=== PATIENT | female | born 1995 | race Caucasian/White ===

== ENCOUNTER 2020-01-24 22:18 | Emergency (ER) | payer SELFPAY ==
[2020-01-24] MEDS ORDERED: Sodium Chloride 0.9% 10 ML Syringe FLUSH PRN (22:59)
[2020-01-24] MEDS ORDERED: Sodium Chloride 0.9% 2.5 ML Syringe FLUSH PRN (22:59)
[2020-01-25 00:10] LABS: BLOOD UREA NITROGEN,BUN 8 mg/dL (7.0-18.0); CARBON DIOXIDE,CO2 23.4 mmol/L (21.0-32.0); CHLORIDE,CL 101 mmol/L (98-107); GLUCOSE RANDOM 96 mg/dL (74-106); POTASSIUM,K 3.5 mmol/L (3.5-5.1); SODIUM,NA 137 mmol/L (136-145)
--- NOTE | 2020-01-25 00:26 | US ---
INDICATION: Heavy bleeding and cramping TECHNIQUE: Ultrasound pelvis transvaginal for better assessment or to better visualize the endometrium. Real-time sonographic images with spectral and color Doppler imaging of the ovaries were obtained. COMPARISON: None FINDINGS: Uterus: 10.0 x 5.7 x 6.7 cm. Normal echotexture of the myometrium. No masses. Endometrium: Thickened with vascularity with a hypoechoic avascular area near the fundus. Right ovary measures 1.9 x 2.4 x 2.8 cm and left ovary measures 1.3 x 3.5 x 3.0 cm. No ovarian or adnexal masses. Normal blood flow is demonstrated in both ovaries. Cul-de-sac: No significant free fluid. IMPRESSION: Thickened endometrium with some focal fluid near the fundus although without well-defined gestational sac. This is considered a of uncertain location. Differential diagnosis includes normal early and miscarriage. Ectopic not excluded although none is seen on this exam. Suggest correlation with serial quantitative HCG and follow-up ultrasound in 7-10 days. Dictated by Luis Miguel Walters MD @ Jan 25 2020 12:19AM Signed by Dr. Luis Miguel Walters @ Jan 25 2020 12:24AM
[2020-01-25] MEDS ORDERED: Sodium Chloride 0.9% 1,000 ML IV ONE ×2 (01:11→01:46)
--- NOTE | 2020-01-25 01:41 | EDM.PDOC ---
ED HPI GENERAL MEDICAL PROBLEM - General Chief Complaint: PRODUCTION ESTIMATOR Problem Stated Complaint: POSSIBLE MISCARRIAGE Time Seen by Provider: 01/24/20 22:58 - History of Present Illness INITIAL COMMENTS - FREE TEXT/NARRATIVE: History of present illness: 24-year-old female presenting with increasing vaginal bleeding since early this morning. First she developed some cramping and then started to have bright red blood. Last menstrual period November 10, 2019. She did take a test which was positive. She has had a prior miscarriage in the past as well as a termination. She reports she is O- blood type, and has never had RhoGam as far she knows. No fevers or chills. No dysuria. Review of systems: As per history of present illness and below otherwise all systems reviewed and negative. Past medical history: As per history of present illness and as reviewed below otherwise noncontributory. Surgical history: As per history of present illness and as reviewed below otherwise noncontributory. Social history: No reported history of drug or alcohol abuse. Family history: As per history of present illness and as reviewed below otherwise noncontributory. Physical exam: GEN: no acute distress, well appearing HEENT: Atraumatic, normocephalic, mucous membranes moist, Neck: supple, nontender, trachea midline. Lungs: No respiratory distress. Heart: RRR Abdomen: Soft, nondistended, mildly tender, lower abdomen. exam: With JOSHUA Kaplan crib tender. Patient with moderate bleeding. Soaked 11 scopette swabs. Clots in the vaginal vault. Unable to visualize cervix due to volume of blood. laundry tech at bedside and will perform ultrasound now Back: nontender Extremities: Atraumatic. Neurovascularly intact. Neuro: Awake, alert, oriented. Neuro Exam nonfocal. Skin: warm, dry, no lesions Diagnostics: Labs, pelvic ultrasound Therapeutics: RhoGam, IV fluids MDM: Threatened miscarriage versus intrauterine with for trimester bleeding, versus ectopic Impression: [] Plan: [] Definitive disposition and diagnosis as appropriate pending reevaluation and review of above. Lower Abdomen Pain Score (Numeric/FACES): 4 - Related Data Allergies Allergy/AdvReac Type Severity Reaction Status Date / Time Penicillins Allergy Cannot Verified 01/24/20 23:08 Remember Home Meds: Home Meds . [No Known Home Meds] 01/24/20 [History] Past Medical History HEENT History: Reports: None Cardiovascular History: Reports: None Respiratory History: Reports: None Gastrointestinal History: Reports: None Genitourinary History: Reports: None PRODUCTION ESTIMATOR History: Reports: , Spontaneous , Therapeutic Other PRODUCTION ESTIMATOR History: G3 SA 1 TA 1 Musculoskeletal History: Reports: None Neurological History: Reports: None Psychiatric History: Reports: None Endocrine/Metabolic History: Reports: None Hematologic History: Reports: None Immunologic History: Reports: None Oncologic (Cancer) History: Reports: None Dermatologic History: Reports: None - Infectious Disease History Infectious Disease History: Reports: None - Past Surgical History Head Surgeries/Procedures: Reports: None Social & Family History - Tobacco Use Smoking Status *Q: Current Every Day Smoker Years of Tobacco use: 3 Packs/Tins Daily: 0.1 - Recreational Drug Use Recreational Drug Use: No ED ROS GENERAL - Review of Systems Review Of Systems: See Below (See HPI) ED EXAM - Physical Exam Exam: See Below (See HPI) Course - Vital Signs Text/Narrative:: Vaginal bleeding, , 10 weeks by dates, hCG 57,000. Rh-, O- blood type. Hemoglobin 12.3. Dropped to 10.4 while in emergency department as bleeding has been ongoing. Blood pressure in the 100s. Given 2 L of fluids with improvement in blood pressure and patient who originally appeared pale had improvement in her coloration. Ultrasound inconclusive, unknown location , possible miscarriage versus unable to exclude ectopic, per radiology read. Discussed with PRODUCTION ESTIMATOR who will come evaluate the patient but does not suspect ectopic based on direct visualization of the ultrasound herself. When Dr. Thomson came to evaluate the patient, during her pelvic exam she was able to see the full products of conception and the cervix which appeared intact, she does suspect that this is a completed miscarriage with no further retained products of conception after examination and reviewing of the ultrasound. The patient is stable for discharge per Dr. Thomson. Discussed with patient and significant other at the bedside and they agree with this plan and they prefer to go home. Last Recorded V/S: Last Vital Signs Temp 98.3 F 01/25/20 01:59 Pulse 67 01/25/20 01:59 Resp 16 01/25/20 01:59 BP 112/68 01/25/20 01:59 Pulse Ox 99 01/25/20 01:59 - Orders/Labs/Meds Orders: Active Orders 24 hr Category Date Time Status UA W/PIEDAD RFLX IF INDICATED [URIN] Stat Lab 01/24/20 23:27 Ordered UA W/MICROSCOPIC [URIN] Stat Lab 01/24/20 23:27 Ordered Sodium Chloride 0.9% [Saline Flush] Med 01/24/20 22:59 Active 10 ml FLUSH ASDIRECTED PRN Sodium Chloride 0.9% [Saline Flush] Med 01/24/20 22:59 Active 2.5 ml FLUSH ASDIRECTED PRN Saline Lock Insert [OM.PC] Stat Oth 01/24/20 22:59 Ordered Medication Orders Sodium Chloride (Saline Flush) 10 ml FLUSH ASDIRECTED PRN PRN Reason: Keep Vein Open Sodium Chloride (Saline Flush) 2.5 ml FLUSH ASDIRECTED PRN PRN Reason: Keep Vein Open Labs: Laboratory Tests 01/24/20 01/24/20 01/24/20 Range/Units 22:56 23:20 23:20 WBC 6.88 (4.0-11.0) K/uL RBC 3.84 L (4.30-5.90) M/uL Hgb 12.3 (12.0-16.0) g/dL Hct 35.4 L (36.0-46.0) % MCV 92.2 (80.0-98.0) fL MCH 32.0 (27.0-32.0) pg MCHC 34.7 (31.0-37.0) g/dL RDW Std Deviation 41.5 (28.0-62.0) fl RDW Coeff of Alexandra 12 (11.0-15.0) % Plt Count 189 (150-400) K/uL MPV 9.60 (7.40-12.00) fL Neut % (Auto) 72.8 (48.0-80.0) % Lymph % (Auto) 20.2 (16.0-40.0) % Jack % (Auto) 6.5 (0.0-15.0) % Eos % (Auto) 0.4 (0.0-7.0) % Baso % (Auto) 0.1 (0.0-1.5) % Neut # (Auto) 5.0 (1.4-5.7) K/uL Lymph # (Auto) 1.4 (0.6-2.4) K/uL Jack # (Auto) 0.5 (0.0-0.8) K/uL Eos # (Auto) 0.0 (0.0-0.7) K/uL Baso # (Auto) 0.0 (0.0-0.1) K/uL Nucleated RBC % 0.0 /100WBC Nucleated RBCs # 0 K/uL Sodium 137 (136-145) mmol/L Potassium 3.5 (3.5-5.1) mmol/L Chloride 101 (98-107) mmol/L Carbon Dioxide 23.4 (21.0-32.0) mmol/L BUN 8 (7.0-18.0) mg/dL Creatinine 0.7 (0.6-1.0) mg/dL Est Cr Clr Drug Dosing 108.86 mL/min Estimated GFR (MDRD) > 60.0 ml/min Glucose 96 (74-106) mg/dL Calcium 8.9 (8.5-10.1) mg/dL Total Bilirubin 0.7 (0.2-1.0) mg/dL AST 19 (15-37) IU/L ALT 26 (14-63) IU/L Alkaline Phosphatase 63 (46-116) U/L Total Protein 7.4 (6.4-8.2) g/dL Albumin 4.2 (3.4-5.0) g/dL Globulin 3.2 (2.6-4.0) g/dL Albumin/Globulin Ratio 1.3 (0.9-1.6) HCG, Quant 90637.0 mIU/mL Urine Color RED Urine Appearance CLOUDY Urine pH 7.5 (5.0-8.0) Ur Specific [place] 1.015 (1.001-1.035) Urine Protein 100 H (NEGATIVE) mg/dL Urine Glucose (UA) NEGATIVE (NEGATIVE) mg/dL Urine Ketones NEGATIVE (NEGATIVE) mg/dL Urine Occult Blood LARGE H (NEGATIVE) Urine Nitrite NEGATIVE (NEGATIVE) Urine Bilirubin NEGATIVE (NEGATIVE) Urine Urobilinogen 1.0 (<2.0) EU/dL Ur Leukocyte Esterase NEGATIVE (NEGATIVE) Urine RBC TOO NUMEROUS TO CT H (0-2/HPF) Urine WBC 0-1 (0-5/HPF) Ur Epithelial Cells RARE (NONE-FEW) Urine Bacteria RARE (NEGATIVE) Urinalysis Comment Blood Type Antibody Screen Rhogam Indicated 01/24/20 01/25/20 Range/Units 23:20 02:00 WBC (4.0-11.0) K/uL RBC (4.30-5.90) M/uL Hgb 10.4 L (12.0-16.0) g/dL Hct 29.8 L (36.0-46.0) % MCV (80.0-98.0) fL MCH (27.0-32.0) pg MCHC (31.0-37.0) g/dL RDW Std Deviation (28.0-62.0) fl RDW Coeff of Alexandra (11.0-15.0) % Plt Count (150-400) K/uL MPV (7.40-12.00) fL Neut % (Auto) (48.0-80.0) % Lymph % (Auto) (16.0-40.0) % Jack % (Auto) (0.0-15.0) % Eos % (Auto) (0.0-7.0) % Baso % (Auto) (0.0-1.5) % Neut # (Auto) (1.4-5.7) K/uL Lymph # (Auto) (0.6-2.4) K/uL Jack # (Auto) (0.0-0.8) K/uL Eos # (Auto) (0.0-0.7) K/uL Baso # (Auto) (0.0-0.1) K/uL Nucleated RBC % /100WBC Nucleated RBCs # K/uL Sodium (136-145) mmol/L Potassium (3.5-5.1) mmol/L Chloride (98-107) mmol/L Carbon Dioxide (21.0-32.0) mmol/L BUN (7.0-18.0) mg/dL Creatinine (0.6-1.0) mg/dL Est Cr Clr Drug Dosing mL/min Estimated GFR (MDRD) ml/min Glucose (74-106) mg/dL Calcium (8.5-10.1) mg/dL Total Bilirubin (0.2-1.0) mg/dL AST (15-37) IU/L ALT (14-63) IU/L Alkaline Phosphatase (46-116) U/L Total Protein (6.4-8.2) g/dL Albumin (3.4-5.0) g/dL Globulin (2.6-4.0) g/dL Albumin/Globulin Ratio (0.9-1.6) HCG, Quant mIU/mL Urine Color Urine Appearance Urine pH (5.0-8.0) Ur Specific [place] (1.001-1.035) Urine Protein (NEGATIVE) mg/dL Urine Glucose (UA) (NEGATIVE) mg/dL Urine Ketones (NEGATIVE) mg/dL Urine Occult Blood (NEGATIVE) Urine Nitrite (NEGATIVE) Urine Bilirubin (NEGATIVE) Urine Urobilinogen (<2.0) EU/dL Ur Leukocyte Esterase (NEGATIVE) Urine RBC (0-2/HPF) Urine WBC (0-5/HPF) Ur Epithelial Cells (NONE-FEW) Urine Bacteria (NEGATIVE) Urinalysis Comment Blood Type O NEGATIVE Antibody Screen NEGATIVE Rhogam Indicated YES Meds: Medications Generic Name Dose Route Start Last Admin Trade Name Freq PRN Reason Stop Dose Admin Sodium Chloride 10 ml 01/24/20 22:59 Saline Flush FLUSH ASDIRECTED PRN Keep Vein Open Sodium Chloride 2.5 ml 01/24/20 22:59 Saline Flush FLUSH ASDIRECTED PRN Keep Vein Open Discontinued Medications Generic Name Dose Route Start Last Admin Trade Name Freq PRN Reason Stop Dose Admin Sodium Chloride 1,000 mls @ 999 mls/hr 01/25/20 01:11 01/25/20 01:13 Normal Saline IV 01/25/20 02:11 999 mls/hr .Bolus ONE Administration Sodium Chloride 1,000 mls @ 999 mls/hr 01/25/20 01:46 01/25/20 01:55 Normal Saline IV 01/25/20 02:46 999 mls/hr .Bolus ONE Administration - Re-Assessments/Exams Free Text/Narrative Re-Assessment/Exam: 01/25/20 01:[address] Thomson, OBGYN, recommends additional IV fluids, she is going to complete a and she will call back and discuss case. 01/25/20 01:58 Ultrasound results and PRODUCTION ESTIMATOR discussion discussed with the patient. Will recheck H&H 01/25/20 03:20 Dr. Thomson, PRODUCTION ESTIMATOR call back, we discussed the case. She reviewed the ultrasound images and suspects the patient has had a miscarriage, We did discuss the patient's H&H chest dropped from 12.3-10.4. she will come down and see and examine the patient. 01/25/20 03:54 DR Thomson at bedside, examined patient and found POC (complete) in vaginal vault, and was able to fully examine, diagnosis completed miscarriage. She recommends plan for follow-up as initially planned with an OB that the patient had scheduled in [place]. Dr. Dubon will send the POC for pathology eval. All of this was discussed with the patient and significant other at the bedside as well. They voiced understanding of the plan. Patient is feeling better. She was able to stand and ambulate in the department and she was able to drink fluids and keep them down. Discussed follow-up plan as well as pelvic rest for 2 weeks and return to the emergency department if any significant bleeding/greater than 1 pad per hour, or fever. Departure - Departure Time of Disposition: 03:56 Disposition: Home, Self-Care 01 Clinical Impression: Complete miscarriage - Discharge Information Instructions: Miscarriage, [id number] Referrals: PCP,None [Primary Care Provider] - Jaye Thomson MD [Physician] - (Will call you with Pathology results from the products of conception) Forms: ED Department Discharge Additional Instructions: The following information is given to patients seen in the emergency department who are being discharged to home. This information is to outline your options for follow-up care. We provide all patients seen in our emergency department with a follow-up referral. The need for follow-up, as well as the timing and circumstances, are variable depending upon the specifics of your emergency department visit. If you don't have a primary care physician on staff, we will provide you with a referral. We always advise you to contact your personal physician following an emergency department visit to inform them of the circumstance of the visit and for follow-up with them and/or the need for any referrals to a consulting specialist. The emergency department will also refer you to a specialist when appropriate. This referral assures that you have the opportunity for follow-up care with a specialist. All of these measure are taken in an effort to provide you with optimal care, which includes your follow-up. Under all circumstances we always encourage you to contact your private physician who remains a resource for coordinating your care. When calling for follow-up care, please make the office aware that this follow-up is from your recent emergency room visit. If for any reason you are refused follow-up, please contact the [facility] Emergency Department at and asked to speak to the emergency department charge nurse. Please follow-up with the PRODUCTION ESTIMATOR doctor in [place] with whom you had planned follow-up. Return to the ER immediately if you have significant pain or high fevers. He may take Tylenol, ibuprofen for pain. Increase fluid intake. You may also state that taking iron for the next week. Sepsis Event Note (ED) - Evaluation Sepsis Screening Result: No Definite Risk - Focused Exam Vital Signs: Vital Signs Temp Temp Pulse Resp BP Pulse Ox 01/25/20 01:59 98.3 F 67 16 112/68 99 01/25/20 01:00 98.1 F 94 18 106/58 L 01/24/20 23:01 97.6 F 86 18 114/70 98 - My Orders Last 24 Hours: My Active Orders 01/24/20 22:59 Sodium Chloride 0.9% [Saline Flush] 10 ml FLUSH ASDIRECTED PRN Sodium Chloride 0.9% [Saline Flush] 2.5 ml FLUSH ASDIRECTED PRN Saline Lock Insert [OM.PC] Stat 01/24/20 23:27 UA W/PIEDAD RFLX IF INDICATED [URIN] Stat UA W/MICROSCOPIC [URIN] Stat - Assessment/Plan Last 24 Hours: My Active Orders 01/24/20 22:59 Sodium Chloride 0.9% [Saline Flush] 10 ml FLUSH ASDIRECTED PRN Sodium Chloride 0.9% [Saline Flush] 2.5 ml FLUSH ASDIRECTED PRN Saline Lock Insert [OM.PC] Stat 01/24/20 23:27 UA W/PIEDAD RFLX IF INDICATED [URIN] Stat UA W/MICROSCOPIC [URIN] Stat
--- NOTE | 2020-01-25 04:00 | PCM.CONS ---
H&P History of Present Illness - General Date of Service: 01/25/20 Source of Information: Patient History Limitations: Reports: No Limitations - History of Present Illness Initial Comments - Free Text/Narative: 24 yo presents with vaginal bleeding that began yesterday morning. She realized she was about a month ago. She is supposed to be 10 weeks along. She has not received any care yet for the --has an appointment in [place] this upcoming week scheduled. She denies fever or chills. Bleeding became much heavier this evening. Hemoglobin has dropped 2 points while being monitored in the ER. The sonogram reveals thickened decidualized endometrium--no gestational sac or embryo identified. Lower Abdomen Pain Score (Numeric/FACES): 4 - Related Data Allergies/Adverse Reactions: Allergies Allergy/AdvReac Type Severity Reaction Status Date / Time Penicillins Allergy Cannot Verified 01/24/20 23:08 Remember Home Medications: Home Meds . [No Known Home Meds] 01/24/20 [History] Past Medical History HEENT History: Reports: None Cardiovascular History: Reports: None Respiratory History: Reports: None Gastrointestinal History: Reports: None Genitourinary History: Reports: None PROPERTY COORDINATOR History: Reports: , Spontaneous , Therapeutic Other OB/BYN History: G3 SA 1 TA 1 Musculoskeletal History: Reports: None Neurological History: Reports: None Psychiatric History: Reports: None Endocrine/Metabolic History: Reports: None Hematologic History: Reports: None Immunologic History: Reports: None Oncologic (Cancer) History: Reports: None Dermatologic History: Reports: None - Infectious Disease History Infectious Disease History: Reports: None - Past Surgical History Head Surgeries/Procedures: Reports: None Social & Family History - Tobacco Use Smoking Status *Q: Current Every Day Smoker Years of Tobacco use: 3 Packs/Tins Daily: 0.1 - Recreational Drug Use Recreational Drug Use: No H&P Review of Systems - Review of Systems: Review Of Systems: See Below General: Reports: Fatigue. Denies: Fever, Chills, Malaise, Weakness Pulmonary: Denies: Shortness of Breath Cardiovascular: Denies: Chest Pain, Palpitations, Lightheadedness Gastrointestinal: Reports: Abdominal Pain (cramping low pelvis) Genitourinary: Reports: No Symptoms Musculoskeletal: Reports: No Symptoms Skin: Reports: No Symptoms Psychiatric: Reports: No Symptoms Neurological: Reports: Dizziness (earlier, feels better now) Hematologic/Lymphatic: Reports: No Symptoms Immunologic: Reports: No Symptoms Exam - Exam Exam: See Below - Vital Signs Vital Signs: Last Vital Signs Temp 36.8 C 01/25/20 01:59 Pulse 67 01/25/20 01:59 Resp 16 01/25/20 01:59 BP 112/68 01/25/20 01:59 Pulse Ox 99 01/25/20 01:59 Weight: 63.4 kg - Exam General: Alert, Oriented Neck: Trachea Midline Lungs: Normal Respiratory Effort Cardiovascular: Regular Rate, Regular Rhythm GI/Abdominal Exam: Normal Bowel Sounds, Soft, No Mass. No: Guarding, Rigid (Female) Exam: Cervical Dilatation (cervix is open to ring forcep, upon intr oduction and clearing of clots--embryo and gestational sac expelled. Will be sent to pathology. Remainder of clots cleared. Os is now not as dilated and bleeding is minimal). No: Adnexal Tenderness, Cervix Motion Tenderness Back Exam: Normal Inspection Extremities: No: Pedal Edema Skin: Warm, Dry, Intact Neuro Extensive - Mental Status: Alert, Oriented x3 - Patient Data Lab Results Last 24 hrs: Laboratory Results - last 24 hr 01/24/20 01/24/20 01/24/20 Range/Units 22:56 23:20 23:20 WBC 6.88 (4.0-11.0) K/uL RBC 3.84 L (4.30-5.90) M/uL Hgb 12.3 (12.0-16.0) g/dL Hct 35.4 L (36.0-46.0) % MCV 92.2 (80.0-98.0) fL MCH 32.0 (27.0-32.0) pg MCHC 34.7 (31.0-37.0) g/dL RDW Std Deviation 41.5 (28.0-62.0) fl RDW Coeff of Alexandra 12 (11.0-15.0) % Plt Count 189 (150-400) K/uL MPV 9.60 (7.40-12.00) fL Neut % (Auto) 72.8 (48.0-80.0) % Lymph % (Auto) 20.2 (16.0-40.0) % [place] % (Auto) 6.5 (0.0-15.0) % Eos % (Auto) 0.4 (0.0-7.0) % Baso % (Auto) 0.1 (0.0-1.5) % Neut # (Auto) 5.0 (1.4-5.7) K/uL Lymph # (Auto) 1.4 (0.6-2.4) K/uL [place] # (Auto) 0.5 (0.0-0.8) K/uL Eos # (Auto) 0.0 (0.0-0.7) K/uL Baso # (Auto) 0.0 (0.0-0.1) K/uL Nucleated RBC % 0.0 /100WBC Nucleated RBCs # 0 K/uL Sodium 137 (136-145) mmol/L Potassium 3.5 (3.5-5.1) mmol/L Chloride 101 (98-107) mmol/L Carbon Dioxide 23.4 (21.0-32.0) mmol/L BUN 8 (7.0-18.0) mg/dL Creatinine 0.7 (0.6-1.0) mg/dL Est Cr Clr Drug Dosing 108.86 mL/min Estimated GFR (MDRD) > 60.0 ml/min Glucose 96 (74-106) mg/dL Calcium 8.9 (8.5-10.1) mg/dL Total Bilirubin 0.7 (0.2-1.0) mg/dL AST 19 (15-37) IU/L ALT 26 (14-63) IU/L Alkaline Phosphatase 63 (46-116) U/L Total Protein 7.4 (6.4-8.2) g/dL Albumin 4.2 (3.4-5.0) g/dL Globulin 3.2 (2.6-4.0) g/dL Albumin/Globulin Ratio 1.3 (0.9-1.6) HCG, Quant 35032.0 mIU/mL Urine Color RED Urine Appearance CLOUDY Urine pH 7.5 (5.0-8.0) Ur Specific [place] 1.015 (1.001-1.035) Urine Protein 100 H (NEGATIVE) mg/dL Urine Glucose (UA) NEGATIVE (NEGATIVE) mg/dL Urine Ketones NEGATIVE (NEGATIVE) mg/dL Urine Occult Blood LARGE H (NEGATIVE) Urine Nitrite NEGATIVE (NEGATIVE) Urine Bilirubin NEGATIVE (NEGATIVE) Urine Urobilinogen 1.0 (<2.0) EU/dL Ur Leukocyte Esterase NEGATIVE (NEGATIVE) Urine RBC TOO NUMEROUS TO CT H (0-2/HPF) Urine WBC 0-1 (0-5/HPF) Ur Epithelial Cells RARE (NONE-FEW) Urine Bacteria RARE (NEGATIVE) Urinalysis Comment Blood Type Antibody Screen Rhogam Indicated 01/24/20 01/25/20 Range/Units 23:20 02:00 WBC (4.0-11.0) K/uL RBC (4.30-5.90) M/uL Hgb 10.4 L (12.0-16.0) g/dL Hct 29.8 L (36.0-46.0) % MCV (80.0-98.0) fL MCH (27.0-32.0) pg MCHC (31.0-37.0) g/dL RDW Std Deviation (28.0-62.0) fl RDW Coeff of Alexandra (11.0-15.0) % Plt Count (150-400) K/uL MPV (7.40-12.00) fL Neut % (Auto) (48.0-80.0) % Lymph % (Auto) (16.0-40.0) % [place] % (Auto) (0.0-15.0) % Eos % (Auto) (0.0-7.0) % Baso % (Auto) (0.0-1.5) % Neut # (Auto) (1.4-5.7) K/uL Lymph # (Auto) (0.6-2.4) K/uL [place] # (Auto) (0.0-0.8) K/uL Eos # (Auto) (0.0-0.7) K/uL Baso # (Auto) (0.0-0.1) K/uL Nucleated RBC % /100WBC Nucleated RBCs # K/uL Sodium (136-145) mmol/L Potassium (3.5-5.1) mmol/L Chloride (98-107) mmol/L Carbon Dioxide (21.0-32.0) mmol/L BUN (7.0-18.0) mg/dL Creatinine (0.6-1.0) mg/dL Est Cr Clr Drug Dosing mL/min Estimated GFR (MDRD) ml/min Glucose (74-106) mg/dL Calcium (8.5-10.1) mg/dL Total Bilirubin (0.2-1.0) mg/dL AST (15-37) IU/L ALT (14-63) IU/L Alkaline Phosphatase (46-116) U/L Total Protein (6.4-8.2) g/dL Albumin (3.4-5.0) g/dL Globulin (2.6-4.0) g/dL Albumin/Globulin Ratio (0.9-1.6) HCG, Quant mIU/mL Urine Color Urine Appearance Urine pH (5.0-8.0) Ur Specific [place] (1.001-1.035) Urine Protein (NEGATIVE) mg/dL Urine Glucose (UA) (NEGATIVE) mg/dL Urine Ketones (NEGATIVE) mg/dL Urine Occult Blood (NEGATIVE) Urine Nitrite (NEGATIVE) Urine Bilirubin (NEGATIVE) Urine Urobilinogen (<2.0) EU/dL Ur Leukocyte Esterase (NEGATIVE) Urine RBC (0-2/HPF) Urine WBC (0-5/HPF) Ur Epithelial Cells (NONE-FEW) Urine Bacteria (NEGATIVE) Urinalysis Comment Blood Type O NEGATIVE Antibody Screen NEGATIVE Rhogam Indicated YES Result Diagrams: 01/25/20 02:00 01/24/20 23:20 Sepsis Event Note - Evaluation Sepsis Screening Result: No Definite Risk - Focused Exam Vital Signs: Vital Signs Temp Temp Pulse Resp BP Pulse Ox 01/25/20 01:59 36.8 C 67 16 112/68 99 01/25/20 01:00 36.7 C 94 18 106/58 L 01/24/20 23:01 36.4 C 86 18 114/70 98 Date Exam was Performed: 01/25/20 Time Exam was Performed: 03:54 Consult PN Assessment/Plan Problem List Initiated/Reviewed/Updated: Yes My Orders Last 24 Hours: Status post complete spontaneous , first trimester Plan: Patient has received rhogam. Products of conception to pathology. Bleeding is mi nimal at this time and patient denies lightheadedness or dizziness. VS are stable. She would like to go home. Discharge instructions reviewed. Advised pelvic rest for 2 weeks. She is advised to follow up in [place] in 2 weeks with OB provider. Infection and bleeding warnings reviewed. She is to call with any concerns or questions. She agrees to plan of care.
== END 2020-01-25 04:34 | disposition home or self-care (01) ==
LOC: MW.ED 22:18
DX: O03.9 Complete or unspecified spontaneous abortion without complication (principal); F17.210 Nicotine dependence, cigarettes, uncomplicated; Z88.0 Allergy status to penicillin
CPT/HCPCS: 36415; 76801; 80053; 81001; 84702; 85014; 85018; 85025; 86850; 86900; 86901; 96360; 99284; J2792; J7030; 88305